=== PATIENT | male | born 1995 | race Caucasian/White ===

== ENCOUNTER 2019-09-14 23:20 | Emergency (ER) | payer OTHER, SELFPAY ==
[2019-09-15 00:31] LABS: Absolute Lymphocytes (CBC) 1.9 K/uL (0.7-4.9); Basophils % 0.6 % (0-1.3); Hematocrit 43.3 % (39.6-49.0); Lymphocytes % 24.6 % (15.3-44.8); MPV 7.8 fL (7.6-11.3); RBC Red Blood Cell Count 4.33 M/uL (4.33-5.43)
[2019-09-15] MEDS ORDERED: FENTANYL CITR 100 MCG/2 ML ONE (00:36)
[2019-09-15] MEDS ORDERED: NA CHLORIDE 0.9% 1,000 ML ONE (00:36)
[2019-09-15 00:37] LABS: Urine Bacteria <20 /HPF (NONE SEEN); Urine Culture Reflex Order NOT NEEDED; Urine Mucus LIGHT /HPF (NONE SEEN); Urine RBC <5 /HPF (NONE SEEN)
[2019-09-15 00:44] LABS: Urine Blood NEGATIVE (NEG); Urine Glucose NEGATIVE (NEG); Urine Protein NEGATIVE (NEG); Urine pH 5.5 (5.0-7.0)
[2019-09-15 00:46] LABS: BUN Blood Urea Nitrogen 12 mg/dL (7-18); Bicarbonate 25 mmol/L (21-32); Glucose Level 87 mg/dL (74-106); Potassium 3.8 mmol/L (3.5-5.1); Sodium Level 135 mmol/L (136-145)
[2019-09-15 01:18] LABS: Blood Morphology Comment NOT SEEN (NOT SEEN); Platelet Estimate ADEQ; Urine White Blood Cell Casts OK
[2019-09-15] MEDS ORDERED: CIPROFLOXACIN HCL 500 MG TAB ONE (01:28)
--- NOTE | 2019-09-15 01:33 | ER ---
Nurse's Notes [facility] Name: Aneesh Coles Age: 24 yrs Sex: Male : 1995 Arrival Date: 09/14/2019 Time: 23:25 Bed 17 Private MD: Diagnosis: Nonspecific mesenteric lymphadenitis;Urinary tract infection, site not specified Presentation: 09/14 23:52 Presenting complaint: Patient states: C/O back pain and thinks it is a kidney infection. Pt states he was lightheaded, feels sick and head was hurting prior to getting in ER. Transition of care: patient was not received from another setting of care. Onset of symptoms was September 14, 2019. Risk Assessment: Do you want to hurt yourself or someone else? Patient reports no desire to harm self or others. Initial Sepsis Screen: Does the patient meet any 2 criteria? No. Patient's initial sepsis screen is negative. Does the patient have a suspected source of infection? No. Patient's initial sepsis screen is negative. Care prior to arrival: None. 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 - Social history:: Smoking status: Patient uses tobacco products, denies chronic smoking, but will smoke occasionally. - Ebola Screening: : Patient negative for fever greater than or equal to 101.5 degrees Fahrenheit, and additional compatible Ebola Virus Disease symptoms Patient denies exposure to infectious person. Screenin:53 Abuse screen: Denies threats or abuse. Denies injuries from another. Nutritional screening: No deficits noted. Tuberculosis screening: No symptoms or risk factors identified. Fall Risk None identified. Assessment: 23:58 General: Appears in no apparent distress. Behavior is calm, cooperative, appropriate for age. Pain: Complains of pain in Lower back Pain does not radiate. Pain currently is 8 out of 10 on a pain scale. Pain began 3 hours ago. Neuro: Level of Consciousness is awake, alert, obeys commands, Oriented to person, place, time, situation, Appropriate for age. Cardiovascular: Capillary refill < 3 seconds. Respiratory: Airway is patent Respiratory effort is even, unlabored, Respiratory pattern is regular, symmetrical. GI: Abdomen is flat, non-distended, Abd is soft and non tender X 4 quads. : No signs and/or symptoms were reported regarding the genitourinary system. EENT: No signs and/or symptoms were reported regarding the EENT system. Derm: Skin is intact, is healthy with good turgor, Skin is pink, warm \T\ dry. normal. Musculoskeletal: Circulation, motion, and sensation intact. 09/15 00:25 Reassessment: Patient to CT via wheelchair. lp1 00:41 Reassessment: Patient appears in no apparent distress at this time. Patient returned lp1 from from CT. 01:50 Reassessment: Patient appears in no apparent distress at this time. No changes from previously documented assessment. Patient and/or family updated on plan of care and expected duration. Pain level reassessed. Patient is alert, oriented x 3, equal unlabored respirations, skin warm/dry/pink. Vital Signs: 09/14 23:59 BP 122 / 85; Pulse 81; Resp 18; Temp 99.2; Pulse Ox 99% ; Weight 92.99 kg; Height 6 ft. 3 in. (190.50 cm); 09/15 01:00 BP 129 / 74; Pulse 74; Resp 18; Pulse Ox 100% ; 02:00 BP 122 / 81; Pulse 76; Resp 18; Pulse Ox 100% on R/A; 09/14 23:59 Body Mass Index 25.62 (92.99 kg, 190.50 cm) ED Course: 09/14 23:25 Patient arrived in ED. jg7 23:32 Rebecca Bar FNP-C is PHCP. snw 23:32 Jamarcus Kennedy MD is Attending Physician. snw 23:35 Lion Muller is Primary Nurse. 23:53 Triage completed. 23:55 Arm band placed on right wrist. 23:55 Patient has correct armband on for positive identification. Bed in low position. Call light in reach. Side rails up X 1. Pulse ox on. NIBP on. 09/15 00:20 Inserted saline lock: 22 gauge in right antecubital area, using aseptic technique. lp1 Blood collected. 00:51 CT Stone Protocol In Process Unspecified. EDMS 02:03 No provider procedures requiring assistance completed. IV discontinued, intact, bleeding controlled, No redness/swelling at site. Administered Medications: 00:40 Drug: fentaNYL (PF) 25 mcg {Note: RASS 0.} Route: IVP; Site: right antecubital; 1 01:40 Follow up: Response: No adverse reaction; Pain is decreased; RASS: Alert and Calm (0) 00:40 Drug: NS 0.9% 1000 ml Route: IV; Rate: 1 bolus; Site: right antecubital; 1 01:40 Follow up: Response: No adverse reaction; IV Status: Completed infusion 01:29 Drug: Cipro 500 mg Route: PO; 01:40 Follow up: Response: No adverse reaction 01:50 Drug: TORadol - Ketorolac 15 mg Route: IVP; Site: right antecubital; 02:05 Follow up: Response: No adverse reaction; Pain is decreased Outcome: 01:32 Discharge ordered by . kameron 02:04 Discharged to home ambulatory, with family. 02:04 Condition: stable 02:04 Discharge instructions given to patient, family, Instructed on discharge instructions, follow up and referral plans. medication usage, POC UTI Demonstrated understanding of instructions, follow-up care, medications, POC Prescriptions given X 2. 02:05 Patient left the ED. Signatures: Dispatcher [employer] EDPA Rebecca Bar, JUNIOR BUSINESS ANALYST-C JUNIOR BUSINESS ANALYST-Csnw Cathleen Issa RN RN 1 Lion Muller Erica Arnett
--- NOTE | 2019-09-15 01:33 | EDPHYS ---
Physician Documentation [facility] Name: Aneesh Coles Age: 24 yrs Sex: Male : 1995 Arrival Date: 09/14/2019 Time: 23:25 Bed 17 Private MD: ED Physician Jamarcus Kennedy HPI: 09/15 01:35 This 24 yrs old Male presents to ER via Ambulatory with complaints of Back snw Pain. 01:35 The patient presents with pain that is acute. The symptoms are located in the right low snw back. Onset: The symptoms/episode began/occurred gradually. The pain does not radiate. Associated signs and symptoms: Pertinent positives: fever, nausea. The problem was sustained from unknown cause. Severity of symptoms: At their worst the symptoms were moderate, severe. The patient has not experienced similar symptoms in the past. It is unknown whether or not the patient has recently seen a physician. 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 - Social history:: Smoking status: Patient uses tobacco products, denies chronic smoking, but will smoke occasionally. - Ebola Screening: : Patient negative for fever greater than or equal to 101.5 degrees Fahrenheit, and additional compatible Ebola Virus Disease symptoms Patient denies exposure to infectious person. ROS: 09/15 01:35 Constitutional: Negative for fever, chills, and weight loss, Eyes: Negative for injury, snw pain, redness, and discharge, ENT: Negative for injury, pain, and discharge, Neck: Negative for injury, pain, and swelling, Cardiovascular: Negative for chest pain, palpitations, and edema, Respiratory: Negative for shortness of breath, cough, wheezing, and pleuritic chest pain, Abdomen/GI: Negative for abdominal pain, nausea, vomiting, diarrhea, and constipation, : Negative for injury, bleeding, discharge, and swelling, MS/Extremity: Negative for injury and deformity, Skin: Negative for injury, rash, and discoloration, Neuro: Negative for headache, weakness, numbness, tingling, and seizure. Back: Positive for pain at rest, pain with movement, of the right low back. Exam: 01:34 Constitutional: This is a well developed, well nourished patient who is awake, alert, snw and in no acute distress. Head/Face: Normocephalic, atraumatic. Eyes: Pupils equal round and reactive to light, extra-ocular motions intact. Lids and lashes normal. Conjunctiva and sclera are non-icteric and not injected. Cornea within normal limits. Periorbital areas with no swelling, redness, or edema. ENT: Nares patent. No nasal discharge, no septal abnormalities noted. Tympanic membranes are normal and external auditory canals are clear. Oropharynx with no redness, swelling, or masses, exudates, or evidence of obstruction, uvula midline. Mucous membranes moist. Neck: Trachea midline, no thyromegaly or masses palpated, and no cervical lymphadenopathy. Supple, full range of motion without nuchal rigidity, or vertebral point tenderness. No Meningismus. Chest/axilla: Normal chest wall appearance and motion. Nontender with no deformity. No lesions are appreciated. Cardiovascular: Regular rate and rhythm with a normal S1 and S2. No gallops, murmurs, or rubs. Normal PMI, no JVD. No pulse deficits. Respiratory: Lungs have equal breath sounds bilaterally, clear to auscultation and percussion. No rales, rhonchi or wheezes noted. No increased work of breathing, no retractions or nasal flaring. Skin: Warm, dry with normal turgor. Normal color with no rashes, no lesions, and no evidence of cellulitis. MS/ Extremity: Pulses equal, no cyanosis. Neurovascular intact. Full, normal range of motion. Neuro: Awake and alert, GCS 15, oriented to person, place, time, and situation. Cranial nerves II-XII grossly intact. Motor strength 5/5 in all extremities. Sensory grossly intact. Cerebellar exam normal. Normal gait. Psych: Awake, alert, with orientation to person, place and time. Behavior, mood, and affect are within normal limits. 01:34 Abdomen/GI: Inspection: abdomen appears normal, Bowel sounds: normal, Palpation: mild abdominal tenderness, moderate abdominal tenderness, in the suprapubic area and posterior aspect of right lateral abdomen. Vital Signs: 09/14 23:59 BP 122 / 85; Pulse 81; Resp 18; Temp 99.2; Pulse Ox 99% ; Weight 92.99 kg; Height 6 ft. wh 3 in. (190.50 cm); 09/15 01:00 BP 129 / 74; Pulse 74; Resp 18; Pulse Ox 100% ; wh 02:00 BP 122 / 81; Pulse 76; Resp 18; Pulse Ox 100% on R/A; wh 09/14 23:59 Body Mass Index 25.62 (92.99 kg, 190.50 cm) MDM: 09/14 23:32 Patient medically screened. snw 09/15 01:33 Data reviewed: vital signs, nurses notes. Data interpreted: Pulse oximetry: on room air snw is 99 %. Interpretation: normal. Counseling: I had a detailed discussion with the patient and/or guardian regarding: the historical points, exam findings, and any diagnostic results supporting the discharge/admit diagnosis, the presence of at least one elevated blood pressure reading (>120/80) during this emergency department visit, lab results, radiology results, the need for outpatient follow up, to return to the emergency department if symptoms worsen or persist or if there are any questions or concerns that arise at home. Response to treatment: the patient's symptoms have mildly improved after treatment. Special discussion: Based on the patient's Hx, exam, and Dx evaluation, there is no indication for emergent surgery or inpatient Tx. It is understood by the patient/guardian that if the Sx's persist or worsen they need to return immediately for re-evaluation. Based on the history and exam findings, there is no indication for further emergent testing or inpatient evaluation. I discussed with the patient/guardian the need to see the primary care provider for further evaluation of the symptoms. 09/15 00:06 Order name: Urine Culture snw 09/15 00:06 Order name: Urine Microscopic Only; Complete Time: 00:50 snw 09/15 00:07 Order name: CBC with Diff; Complete Time: :23 snw 09/15 00:07 Order name: Chem 7; Complete Time: 00:50 snw 09/15 00:37 Order name: Urine Dipstick--Ancillary (enter results); Complete Time: 00:50 mt 09/15 01:18 Order name: CBC Smear Scan; Complete Time: 01:23 EDMS 09/15 00:06 Order name: Urine Dipstick-Ancillary (obtain specimen); Complete Time: 00:30 snw 09/15 00:06 Order name: CT Stone Protocol snw Administered Medications: 00:40 Drug: fentaNYL (PF) 25 mcg {Note: RASS 0.} Route: IVP; Site: right antecubital; lp1 01:40 Follow up: Response: No adverse reaction; Pain is decreased; RASS: Alert and Calm (0) 00:40 Drug: NS 0.9% 1000 ml Route: IV; Rate: 1 bolus; Site: right antecubital; lp1 01:40 Follow up: Response: No adverse reaction; IV Status: Completed infusion 01:29 Drug: Cipro 500 mg Route: PO; 01:40 Follow up: Response: No adverse reaction 01:50 Drug: TORadol - Ketorolac 15 mg Route: IVP; Site: right antecubital; 02:05 Follow up: Response: No adverse reaction; Pain is decreased Disposition: 10:22 Co-signature as Attending Physician, Jamarcus Kennedy MD I agree with the assessment and kdr plan of care. Disposition: 09/15/19 01:32 Discharged to Home. Impression: Nonspecific mesenteric lymphadenitis, Urinary tract infection, site not specified. - Condition is Stable. - Discharge Instructions: Back Pain, Adult, Mesenteric Adenitis, Pediatric, Urinary Tract Infection, Adult, Rehydration, Adult. - Prescriptions for Cipro 500 mg Oral Tablet - take 1 tablet by ORAL route every 12 hours for 7 days; 14 tablet. Diclofenac Sodium 75 mg Oral Tablet Sustained Release - take 1 tablet by ORAL route 2 times per day; 30 tablet. - Work release form, Medication Reconciliation Form, Thank You Letter, Antibiotic Education, Prescription Opioid Use form. - Follow up: Private Physician; When: 2 - 3 days; Reason: Recheck today's complaints, Continuance of care, Re-evaluation by your physician. Follow up: Emergency Department; When: As needed; Reason: Worsening of condition. Signatures: Dispatcher [employer] Jamarcus Meehan MD MD kdr Therrien, Shelly, DINING SERVICES MANAGER-C DINING SERVICES MANAGER-Csnw Cathleen Issa RN RN 1 Lion Muller Corrections: (The following items were deleted from the chart) 02:05 01:32 09/15/2019 01:32 Discharged to Home. Impression: Nonspecific mesenteric wh lymphadenitis; Urinary tract infection, site not specified. Condition is Stable. Forms are Medication Reconciliation Form, Thank You Letter, Antibiotic Education, Prescription Opioid Use. Follow up: Private Physician; When: 2 - 3 days; Reason: Recheck today's complaints, Continuance of care, Re-evaluation by your physician. Follow up: Emergency Department; When: As needed; Reason: Worsening of condition. snw
[2019-09-15] MEDS ORDERED: KETOROLAC 30 MG/ML INJ ONE (01:47)
[2019-09-15 02:35] VITALS: TEMP 99.2
[2019-09-15 02:36] VITALS: O2SAT 100
[2019-09-15 02:38] VITALS: BP 122/81
--- NOTE | 2019-09-16 11:36 | RAD REPORT ---
EXAM DESCRIPTION: CT - Stone Protocol - 09/15/2019 2:39 am CLINICAL HISTORY: FLANK PAIN COMPARISON: None Available. TECHNIQUE: CT of the abdomen and pelvis without IV contrast. Evaluation of the solid organs and vasc ulature is suboptimal due to lack of IV contrast. FINDINGS: Lung Bases: The visualized lung bases are clear. Bones: No destructive bone lesions identified. Dextroconvex curvature of the thoracolumbar spine. Abdomen: Liver: The liver has normal size and density. Gallbladder: No calcified gallstones. Spleen, Pancreas, and Adrenal Glands: The spleen, pancreas, and adrenal glands are unremarkable. Kidneys: The kidneys have normal size without evidence of hydronephrosis. No obstructing ureteral lena culi. Vasculature: The aorta and IVC have normal caliber and position. Stomach: The stomach and duodenum have normal course. Other: No free intraperitoneal air. Mild mesenteric lymphadenopathy. Pelvis: Bladder: Urinary bladder is unremarkable. Bowel: No dilated loops of large or small bowel. Appendix: Normal appendix. Pelvis: Prostate is not enlarged. IMPRESSION: 1. Mild mesenteric lymphadenopathy is likely reactive and secondary to nonspecific enter itis/mesenteritis. 2. No obstructing ureteral calculus. This exam was performed according to our departmental dose-optimization program, which includes autom ated exposure control, adjustment of the mA and/or kV according to patient size and/or use of iterati ve reconstruction technique. Electronically signed by: Milo Anguiano 09/15/2019 12:59 AM MANAGEMENT INTERN Due to temporary technical issues with the PACS/Fluency reporting system, reports are being signed by the in house radiologist as a courtesy to ensure prompt reporting. The interpreting radiologist is f ully responsible for the content of the report.
== END 2019-09-15 02:05 | disposition home or self-care (01) ==
LOC: ER 23:20
DX: N39.0 Urinary tract infection, site not specified (principal); I88.0 Nonspecific mesenteric lymphadenitis; Z72.0 Tobacco use
CPT/HCPCS: 36415; 74176; 76377; 80048; 81003; 81015; 85025; 87086; 87088; 96361; 96374; 96375; 99284; J3010; J7030

== ENCOUNTER 2021-02-23 19:51 | Emergency (ER) | payer SELFPAY ==
--- NOTE | 2021-02-23 20:12 | ER ---
Nurse's Notes [facility] Name: Aneesh Coles Age: 25 yrs Sex: Male : 1995 Arrival Date: 02/23/2021 Time: 19:55 Bed 12 Private MD: Diagnosis: Other otitis externa, left ear Presentation: 02/23 20:04 Chief complaint: Patient states: L ear pain and pain on L side of forehead, face and ca1 jaw x 3 days. Coronavirus screen: Client denies travel out of the [place] in the last 14 days. At this time, the client does not indicate any symptoms associated with coronavirus-19. Ebola Screen: Patient negative for fever greater than or equal to 101.5 degrees Fahrenheit, and additional compatible Ebola Virus Disease symptoms Patient denies exposure to infectious person. Patient denies travel to an Ebola-affected area in the 21 days before illness onset. No symptoms or risks identified at this time. Initial Sepsis Screen: Does the patient meet any 2 criteria? No. Patient's initial sepsis screen is negative. Does the patient have a suspected source of infection? No. Patient's initial sepsis screen is negative. Risk Assessment: Do you want to hurt yourself or someone else? Patient reports no desire to harm self or others. Onset of symptoms was February 23, 2021. 20:04 Method Of Arrival: Ambulatory ca1 20:04 Acuity: MEMO 3 ca1 Historical: - Allergies: 20:05 No Known Allergies; ca1 - Home Meds: 20:05 None [Active]; ca1 - PMHx: 20:05 ADD/ADHD; ca1 - PSHx: 20:05 Splenectomy; ca1 - Immunization history:: Client reports having NOT received the Covid vaccine. Flu vaccine is not up to date. - Social history:: Smoking status: Patient denies any tobacco usage or history of. Screenin:07 Abuse screen: Denies threats or abuse. Denies injuries from another. Nutritional ca1 screening: No deficits noted. Tuberculosis screening: No symptoms or risk factors identified. Fall Risk None identified. Assessment: 20:07 General: Appears in no apparent distress. comfortable, Behavior is calm, cooperative, ca1 appropriate for age. Pain: Complains of pain in left ear Pain currently is 7 out of 10 on a pain scale. Pain began 2-3 days ago. EENT: Tympanic membrane clear on left ear and right ear Ear canal clear on left ear and right ear. Derm: Skin is intact, is healthy with good turgor, Skin is pink, warm \T\ dry. Musculoskeletal: Circulation, motion, and sensation intact. Capillary refill < 3 seconds. Vital Signs: 20:04 BP 120 / 72; Pulse 66; Resp 16 S; Temp 97.1(TE); Pulse Ox 99% on R/A; Weight 99.79 kg ca1 (R); Height 6 ft. 3 in. (190.50 cm) (R); Pain 8/10; 20:04 Body Mass Index 27.50 (99.79 kg, 190.50 cm) ca1 ED Course: 19:55 Patient arrived in ED. bp1 20:02 [facility] Keen [facility]-C [facility]. kb 20:02 Grupo Gibson MD is Attending Physician. kb 20:05 Triage completed. ca1 20:05 Arm band placed on right wrist. ca1 20:07 Lenora Bullard RN is Primary Nurse. ca1 20:07 Patient has correct armband on for positive identification. ca1 20:09 No provider procedures requiring assistance completed. Patient did not have IV access ca1 during this emergency room visit. Administered Medications: No medications were administered Outcome: 20:10 Discharge ordered by . kb 20:14 Discharged to home ambulatory. ca1 20:14 Condition: stable 20:14 Discharge instructions given to patient, Instructed on discharge instructions, follow up and referral plans. medication usage, Demonstrated understanding of instructions, follow-up care, medications, Prescriptions given X 1. 20:14 Patient left the ED. ca1 Signatures: Hillary Keen FNP-C FNP-Lenora Bennett, MOY RN ca1 Venita Mccartney bp1
--- NOTE | 2021-02-23 20:12 | EDPHYS ---
Physician Documentation [facility] Name: Aneesh Coles Age: 25 yrs Sex: Male : 1995 Arrival Date: 02/23/2021 Time: 19:55 Bed 12 Private MD: ED Physician Grupo Gibson HPI: 02/23 20:31 This 25 yrs old Male presents to ER via Ambulatory with complaints of Ear kb Pain, Headache. 20:31 The patient presents with pain, tenderness. The complaints affect the left ear. The kb patient has not experienced similar symptoms in the past. The patient has not recently seen a physician. 20:31 Onset: The symptoms/episode began/occurred 3 day(s) ago. Modifying factors: The kb symptoms are alleviated by nothing, the symptoms are aggravated by nothing. Associated signs and symptoms: The patient has no apparent associated signs or symptoms. Severity of symptoms: At their worst the symptoms were moderate in the emergency department the symptoms are unchanged. Pt reports ear pain that started 3 days ago after swimming with child. States it has been causing a headache and the pain now radiates to cheek and jaw. 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 Flu vaccine is not up to date. - Social history:: Smoking status: Patient denies any tobacco usage or history of. ROS: 20:29 Constitutional: Negative for fever, chills, and weight loss, Respiratory: Negative for kb shortness of breath, cough, wheezing, and pleuritic chest pain, MS/Extremity: Negative for injury and deformity, Skin: Negative for injury, rash, and discoloration. 20:29 ENT: Positive for ear pain. 20:29 Neuro: Positive for headache. Exam: 20:28 Constitutional: This is a well developed, well nourished patient who is awake, alert, kb and in no acute distress. Head/Face: Normocephalic, atraumatic. Respiratory: Respirations even and unlabored. No increased work of breathing, no retractions or nasal flaring. Skin: Warm, dry with normal turgor. Normal color. MS/ Extremity: Pulses equal, no cyanosis. Neurovascular intact. Full, normal range of motion. Neuro: Awake and alert, GCS 15, oriented to person, place, time, and situation. Moves all extremities. Normal gait. 20:28 ENT: Ear canal(s): erythema, that is moderate, of the left canal, inflammation left ear canal, TM's: are normal, Mouth: is normal, Posterior pharynx: is normal. Vital Signs: 20:04 BP 120 / 72; Pulse 66; Resp 16 S; Temp 97.1(TE); Pulse Ox 99% on R/A; Weight 99.79 kg ca1 (R); Height 6 ft. 3 in. (190.50 cm) (R); Pain 8/10; 20:04 Body Mass Index 27.50 (99.79 kg, 190.50 cm) ca1 MDM: 20:09 Patient medically screened. kb 20:28 Data reviewed: vital signs, nurses notes. Data interpreted: Pulse oximetry: on room air kb is 99 %. Interpretation: normal. Counseling: I had a detailed discussion with the patient and/or guardian regarding: the historical points, exam findings, and any diagnostic results supporting the discharge/admit diagnosis, the need for outpatient follow up, a family practitioner, to return to the emergency department if symptoms worsen or persist or if there are any questions or concerns that arise at home. Administered Medications: No medications were administered Disposition: 21:10 Co-signature as Attending Physician, Grupo Gibson MD. rn Disposition: 02/23/21 20:10 Discharged to Home. Impression: Other otitis externa, left ear. - Condition is Stable. - Discharge Instructions: Otitis Externa, [id number], Ear Drops, Adult, [id number]. - Prescriptions for Cortisporin 3.5- 10,000-1 mg/mL-unit/mL-% Otic solution - instill 4 drop by OTIC route 3 times per day for 7 days; 1 bottle. - Medication Reconciliation Form, Thank You Letter, Antibiotic Education, Prescription Opioid Use, Work release form form. - Follow up: Emergency Department; When: As needed; Reason: Worsening of condition. Follow up: Private Physician; When: 2 - 3 days; Reason: Recheck today's complaints, Continuance of care, Re-evaluation by your physician. Signatures: Hillary Keen FNP-C GRAIN UNLOADER MACHINE-Grupo Olvieira MD MD rn Acob, MOY Cooley RN ca1 Corrections: (The following items were deleted from the chart) 20:14 20:10 02/23/2021 20:10 Discharged to Home. Impression: Other otitis externa, left ear. ca1 Condition is Stable. Forms are Work release form, Medication Reconciliation Form, Thank You Letter, Antibiotic Education, Prescription Opioid Use. Follow up: Emergency Department; When: As needed; Reason: Worsening of condition. Follow up: Private Physician; When: 2 - 3 days; Reason: Recheck today's complaints, Continuance of care, Re-evaluation by your physician. kb 20:29 20:28 ENT: Ear canal(s): erythema, that is moderate, of the left canal, inflammation kb left ear canal, TM's: are normal, kb 20:30 20:29 Constitutional: Negative for fever, chills, and weight loss, Respiratory: kb Negative for shortness of breath, cough, wheezing, and pleuritic chest pain, MS/Extremity: Negative for injury and deformity, Skin: Negative for injury, rash, and discoloration, Psych: Negative for depression, anxiety, suicide ideation, homicidal ideation, and hallucinations, kb
[2021-02-23 20:18] VITALS: BP 120/72; TEMP 97.1; O2SAT 99
== END 2021-02-23 20:14 | disposition home or self-care (01) ==
LOC: ER 19:51
DX: H60.8X2 Other otitis externa, left ear (principal)
CPT/HCPCS: 99282

== ENCOUNTER 2022-06-30 13:27 | Emergency (ER) | payer SELFPAY ==
--- NOTE | 2022-06-30 14:52 | ER ---
Nurse's Notes [facility] Name: Aneesh Coles Age: 26 yrs Sex: Male : 1995 Arrival Date: 06/30/2022 Time: 13:28 Bed Treatment Private MD: Diagnosis: Contact dermatitis Presentation: 06/30 14:34 Chief complaint: Patient states: got into some poison [place] or poison [place] 2 days ago, now iw has rash to arms, face. Coronavirus screen: At this time, the client does not indicate any symptoms associated with coronavirus-19. Ebola Screen: Patient negative for fever greater than or equal to 101.5 degrees Fahrenheit, and additional compatible Ebola Virus Disease symptoms Patient denies exposure to infectious person. Patient denies travel to an Ebola-affected area in the 21 days before illness onset. No symptoms or risks identified at this time. 14:34 Method Of Arrival: Ambulatory iw 14:34 Acuity: MEMO 4 iw 14:57 Initial Sepsis Screen: Does the patient meet any 2 criteria? No. Patient's initial ll1 sepsis screen is negative. Does the patient have a suspected source of infection? Yes: Skin breakdown/wound. Risk Assessment: Do you want to hurt yourself or someone else? Patient reports no desire to harm self or others. Onset of symptoms was June 29, 2022. Historical: - Allergies: 14:35 No Known Allergies; iw - Home Meds: 14:35 None [Active]; iw - PMHx: 14:35 ADD/ADHD; iw - PSHx: 14:35 Splenectomy; iw - Immunization history:: Adult Immunizations up to date. - Social history:: Smoking status: Reported history of juuling and/or vaping. Screenin:36 Abuse screen: Denies threats or abuse. Denies injuries from another. Nutritional iw screening: No deficits noted. Tuberculosis screening: No symptoms or risk factors identified. 15:10 Fall Risk Total Jennings Fall Scale indicates No Risk (0-24 pts). ll1 Assessment: 14:35 General: Appears in no apparent distress. Behavior is calm, cooperative. Pain: Denies iw pain. Neuro: Level of Consciousness is awake, alert, obeys commands, Oriented to person, place, time, situation. Derm: Rash noted that is on face, right arm and left arm. Musculoskeletal: Range of motion: intact in all extremities. 14:58 Reassessment: No changes from previously documented assessment. Patient and/or family ll1 updated on plan of care and expected duration. Pain level reassessed. 15:08 Reassessment: No changes from previously documented assessment. Patient and/or family ll1 updated on plan of care and expected duration. Pain level reassessed. Vital Signs: 14:57 BP 122 / 91; Pulse 62; Resp 16; Temp 98.1; Pulse Ox 99% ; Weight 95.25 kg; Height 6 ft. ll1 3 in. (190.50 cm); Pain 0/10; 14:57 Body Mass Index 26.25 (95.25 kg, 190.50 cm) ll1 ED Course: 13:28 Patient arrived in ED. am2 14:26 Odalis Bolden, MOY is Primary Nurse. iw 14:27 Christiano Vera PA is PHCP. [facility] 14:27 Jamarcus Kennedy MD is Attending Physician. [facility] 14:32 Arm band placed on Patient placed in an exam room, on a stretcher. iw 14:34 Triage completed. iw 14:58 Patient has correct armband on for positive identification. Bed in low position. Call ll1 light in reach. Side rails up X 1. Cardiac monitoring not applicable on this patient. 15:09 No provider procedures requiring assistance completed. Patient did not have IV access ll1 during this emergency room visit. Administered Medications: 14:56 Drug: Decadron (dexamethasone) 10 mg Route: IM; Site: right vastus lateralis; ll1 15:09 Follow up: Response: No adverse reaction ll1 Medication: 14:58 VIS not applicable for this client. ll1 Outcome: 14:52 Discharge ordered by . [facility] 15:10 Discharged to home ambulatory. ll1 15:10 Condition: stable 15:10 Discharge instructions given to patient, Instructed on discharge instructions, follow up and referral plans. medication usage, Demonstrated understanding of instructions, follow-up care, medications, Prescriptions given X 2. 15:10 Patient left the ED. ll1 Signatures: Christiano Vera PA PA jmm Williams, Irene, RN RN Lindsey Kendrick am2 Sharita Stuart RN RN ll1
--- NOTE | 2022-06-30 14:52 | EDPHYS ---
Physician Documentation [facility] Name: Aneesh Coles Age: 26 yrs Sex: Male : 1995 Arrival Date: 06/30/2022 Time: 13:28 Bed Treatment Private MD: ED Physician Jamarcus Kennedy HPI: 06/30 14:49 This 26 yrs old Male presents to ER via Ambulatory with complaints of Rash - jmm face/poison [place]. 14:49 The patient's rash thought to be caused by Dermatitis. The rash is located on the face, jmm right arm and left arm. Onset: The symptoms/episode began/occurred gradually, 2 day(s) ago. Associated signs and symptoms: Pertinent positives: burning sensation, itching, Pertinent negatives: fever, swelling of lips, swelling of throat, swelling of tongue, vomiting, wheezing. It is unknown whether or not the patient has had similar symptoms in the past. Historical: - Allergies: 14:35 No Known Allergies; iw - Home Meds: 14:35 None [Active]; iw - PMHx: 14:35 ADD/ADHD; iw - PSHx: 14:35 Splenectomy; iw - Immunization history:: Adult Immunizations up to date. - Social history:: Smoking status: Reported history of juuling and/or vaping. ROS: 14:49 Constitutional: Negative for fever, chills, and weight loss, Cardiovascular: Negative jmm for chest pain, palpitations, and edema, Respiratory: Negative for shortness of breath, cough, wheezing, and pleuritic chest pain. 14:49 MS/extremity: Positive for rash. 14:49 Skin: Positive for rash. 14:49 All other systems are negative. Exam: 14:49 Constitutional: This is a well developed, well nourished patient who is awake, alert, jmm and in no acute distress. Head/Face: atraumatic. Eyes: EOMI, no conjunctival erythema appreciated ENT: Moist Mucus Membranes Neck: Trachea midline, Supple Chest/axilla: Normal chest wall appearance and motion. Cardiovascular: Regular rate and rhythm. No edema appreciated Respiratory: Normal respirations, no respiratory distress appreciated Abdomen/GI: Non distended Back: Normal ROM 14:49 Neuro: Awake and alert Psych: Behavior is normal, Mood is normal, Patient is cooperative and pleasant 14:49 Skin: Erythema noted to the right and left arm. Erythema noted to the face. Appears consistent with dermatitis. Vital Signs: 14:57 BP 122 / 91; Pulse 62; Resp 16; Temp 98.1; Pulse Ox 99% ; Weight 95.25 kg; Height 6 ft. ll1 3 in. (190.50 cm); Pain 0/10; 14:57 Body Mass Index 26.25 (95.25 kg, 190.50 cm) ll1 MDM: 14:[address] [facility] 14:51 Data reviewed: vital signs, nurses notes. Counseling: I had a detailed discussion with anabela the patient and/or guardian regarding: the historical points, exam findings, and any diagnostic results supporting the discharge/admit diagnosis, the need for outpatient follow up, to return to the emergency department if symptoms worsen or persist or if there are any questions or concerns that arise at home. Administered Medications: 14:56 Drug: Decadron (dexamethasone) 10 mg Route: IM; Site: right vastus lateralis; ll1 15:09 Follow up: Response: No adverse reaction ll1 Disposition: 17:59 Co-signature as Attending Physician, Jamarcus Kennedy MD I agree with the assessment and kdr plan of care. Disposition Summary: 06/30/22 14:52 Discharge Ordered Location: Home [facility] Condition: Stable [facility] Diagnosis - Contact dermatitis [facility] Followup: [facility] - With: Private Physician - When: 2 - 3 days - Reason: Recheck today's complaints, Continuance of care, Re-evaluation by your physician Discharge Instructions: - Discharge Summary Sheet [facility] - Contact Dermatitis [facility] Forms: - Medication Reconciliation Form [facility] - Thank You Letter [facility] - Antibiotic Education [facility] - Prescription Opioid Use [facility] Prescriptions: - Prednisone 20 mg Oral Tablet - take 3 tablets by ORAL route once daily for 12 days Please take [address] [facility] daily for 3 days, then take 2 tabs by mouth daily for 3 days, then take 1 tab by mouth daily for 3 days, then take one half tab by mouth daily for 3 days; 20 tablet; Refills: 0, Product Selection Permitted - Hydroxyzine HCl 25 mg Oral Tablet - take 1 tablet by ORAL route every 6 hours As needed; 30 tablet; Refills: 0, [facility] Product Selection Permitted Signatures: Rittger, Jamarcus, Christiano Theodore MD, PA PA jmm Williams, Irene, RN RN iw Sharita Stuart RN RN ll1
[2022-06-30] MEDS ORDERED: dexAMETHasone 10 MG/ML VIAL ONE (14:56)
[2022-07-01 21:06] VITALS: BP 122/91; TEMP 98.1; O2SAT 99
== END 2022-06-30 15:10 | disposition home or self-care (01) ==
LOC: ER 13:27
DX: L25.9 Unspecified contact dermatitis, unspecified cause (principal)
CPT/HCPCS: 96372; 99283; J1100

== ENCOUNTER 2024-02-23 11:36 | Emergency (ER) | payer SELFPAY ==
[2024-02-23] MEDS ORDERED: LIDOCAINE 1% MPF 5 ML VIAL ONE (12:30)
--- NOTE | 2024-02-23 13:13 | ER ---
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 rv Coronavirus screen: At this time, the client does not indicate any symptoms associated with coronavirus-19. Ebola Screen: No symptoms or risks identified at this time. Complicating Factors: There are no complicating factors for this patient. Initial Sepsis Screen: Does the patient meet any 2 criteria? No. Patient's initial sepsis screen is negative. Does the patient have a suspected source of infection? No. Patient's initial sepsis screen is negative. Risk Assessment: Do you want to hurt yourself or someone else? Patient reports no desire to harm self or others. Onset of symptoms was February 23, 2024. 11:48 Method Of Arrival: Ambulatory rv 11:48 Acuity: MEMO 4 rv Triage Assessment: 11:50 General: Appears in no apparent distress. Behavior is cooperative, anxious. Pain: Pain rv currently is 7 out of 10 on a pain scale. Neuro: Level of Consciousness is awake, alert, obeys commands, Oriented to person, place, time, situation. Cardiovascular: Patient's skin is warm and dry. Respiratory: Respiratory effort is even, unlabored, Respiratory pattern is regular, symmetrical. Injury Description: Laceration sustained to palmar aspect of distal phalanx of left index finger is 0.5 to 2.5 cm long, was sustained 30-60 minutes ago. Historical: - Allergies: 11:50 No Known Allergies; rv - Home Meds: 11:50 None [Active]; rv - PMHx: 11:50 ADD/ADHD; rv - PSHx: 11:50 Splenectomy; rv - Immunization history:: Last tetanus immunization: < 5 years ago. - Infectious Disease History:: Denies. - Social history:: Smoking status: Reported history of juuling and/or vaping. Vital Signs: 11:48 BP 135 / 91; Pulse 78; Resp 16; Temp 98.1; Pulse Ox 100% on R/A; Weight 104.33 kg; rv Height 6 ft. 3 in. ; Pain 04/23; 11:48 Body Mass Index 28.75 (104.33 kg, 190.5 cm) rv 11:48 Pain Scale: Adult rv ED Course: 11:36 Patient arrived in ED. mg5 11:39 Griselda Rockwell FNP is [facility] 7 11:39 Julio Metz MD is Attending Physician. [facility] 11:50 Triage completed. rv 11:50 Arm band placed on. rv 13:06 Tala Rucker, RN is Primary Nurse. hb Administered Medications: 12:40 Drug: Lidocaine Infiltration (1 %) 5 ml 5 ml Infiltration once; to bedside Volume: 5 hb ml; Route: Infiltration; 13:30 Follow up: Response: No adverse reaction Outcome: 13:12 Discharge ordered by . [facility] 13:30 Patient left the ED. hb Signatures: Tala Rucker RN RN Nathaniel Osman RN RN Griselda Rockwell FNP [place] [id number] [address] 5
--- NOTE | 2024-02-23 13:13 | EDPHYS ---
Physician Documentation [facility] Name: Aneesh Coles Age: 28 yrs Sex: Male : 1995 Arrival Date: 02/23/2024 Time: 11:36 Bed 11 Private MD: ED Physician Julio Metz HPI: 02/22 11:39 This 28 yrs old Male presents to ER via Unassigned with complaints of Laceration To jh7 Hand - Finger. 11:39 28-year-old male with no past medical history presents to the ER for left index finger 7 laceration. The patient states that he accidentally cut it with a clean razor blade. He reports that his tetanus is up-to-date. Bleeding controlled with pressure.. Historical: - Allergies: 11:50 No Known Allergies; rv - Home Meds: 11:50 None [Active]; rv - PMHx: 11:50 ADD/ADHD; rv - PSHx: 11:50 Splenectomy; rv - Immunization history:: Last tetanus immunization: < 5 years ago. - Infectious Disease History:: Denies. - Social history:: Smoking status: Reported history of juuling and/or vaping. ROS: 11:39 Constitutional: Per HPI jh7 Exam: 11:39 Constitutional: This is a well developed, well nourished patient who is awake, alert, jh7 and in no acute distress. Head/Face: Normocephalic, atraumatic. Neck: Trachea midline, no thyromegaly or masses palpated, and no cervical lymphadenopathy. Supple, full range of motion without nuchal rigidity, or vertebral point tenderness. No Meningismus. Cardiovascular: Regular rate and rhythm with a normal S1 and S2. No gallops, murmurs, or rubs. Normal PMI, no JVD. No pulse deficits. Respiratory: Lungs have equal breath sounds bilaterally, clear to auscultation and percussion. No rales, rhonchi or wheezes noted. No increased work of breathing, no retractions or nasal flaring. 11:39 MS/ Extremity: Pulses equal, no cyanosis. Neurovascular intact. Full, normal range of motion. Neuro: Awake and alert, GCS 15, oriented to person, place, time, and situation. Motor strength 5/5 in all extremities. Sensory grossly intact. Normal gait. 11:39 Skin: injury, laceration(s), the wound is approximately 1 cm(s), of the left distal 2nd phalanx, Vital Signs: 11:48 BP 135 / 91; Pulse 78; Resp 16; Temp 98.1; Pulse Ox 100% on R/A; Weight 104.33 kg; rv Height 6 ft. 3 in. ; Pain 7/10; 11:48 Body Mass Index 28.75 (104.33 kg, 190.5 cm) rv 11:48 Pain Scale: Adult rv Laceration: 13:32 Wound Repair of 1cm ( 0.4in ) subcutaneous laceration to palmar aspect of distal jh7 phalanx of left index finger. Distal neuro/vascular/tendon intact. Anesthesia: Digital block administered with 3 mls of 1% lidocaine. Wound prep: Moderate cleansing by nurse by ca. Skin closed with 22 5-0 Prolene using simple sutures and sterile technique. Dressed with non-adherent dressing. Patient tolerated well. MDM: 11:39 Patient medically screened. [facility] 13:32 Differential diagnosis: superficial laceration. Data reviewed: vital signs, nurses [facility] notes. I considered the following discharge prescriptions or medication management in the emergency department Medications were administered in the Emergency Department. See MAR. Counseling: I had a detailed discussion with the patient and/or guardian regarding the historical points, exam findings, and any diagnostic results supporting the discharge/admit diagnosis, the need for outpatient follow up, for suture removal, to return to the emergency department if symptoms worsen or persist or if there are any questions or concerns that arise at home. 02/22 11:46 Order name: Dressing - Wound; Complete Time: 13:30 [facility] 02/22 11:46 Order name: Gloves, Sterile; Complete Time: 13:30 [facility] 02/22 11:46 Order name: Prolene, Sutures; Complete Time: 13:30 [facility] 02/22 11:46 Order name: Setup Suture Tray; Complete Time: 13:30 [facility] 02/22 11:46 Order name: Wound Care; Complete Time: 13:30 [facility] 02/22 13:11 Order name: Misc. Order: bulky coban dressing; Complete Time: 13:30 [facility] Administered Medications: 12:40 Drug: Lidocaine Infiltration (1 %) 5 ml 5 ml Infiltration once; to bedside Volume: 5 hb ml; Route: Infiltration; 13:30 Follow up: Response: No adverse reaction hb Disposition Summary: 02/23/24 13:12 Discharge Ordered Notes: Location: Home [facility] Problem: new [facility] Symptoms: have improved [facility] Condition: Stable [facility] Diagnosis - Laceration without foreign body of left index finger without damage to nail [facility] Followup: [facility] - With: Private Physician - When: 7 - 10 days - Reason: Staple/Suture removal Discharge Instructions: - Discharge Summary Sheet [facility] - Laceration Care, Adult [facility] Forms: - Medication Reconciliation Form [facility] - Antibiotic Education [facility] - Patient Portal Instructions [facility] - Leadership Thank You Letter [facility] Prescriptions: - Cephalexin 500 mg Oral capsule - take 1 capsule ORAL route every 12 hours for 7 days; 14 capsule; Refills: 0, [facility] Product Selection Permitted Signatures: Tala Rucker, RN RN Nathaniel Osman RN RN Griselda Rockwell, COMMUNICATION LECTURER COMMUNICATION LECTURER [facility] Corrections: (The following items were deleted from the chart) 13:37 11:39 Skin: injury, laceration(s), the wound is approximately 1.5 cm(s), of the left [facility] distal 2nd phalanx, [facility]
[2024-02-23 13:49] VITALS: BP 135/91; TEMP 98.1; O2SAT 100
== END 2024-02-23 13:30 | disposition home or self-care (01) ==
LOC: ER 11:36
PROC: 0HQGXZZ Repair Left Hand Skin, External Approach (ICD-10-PCS; principal; 2024-02-23)
DX: S61.211A Laceration without foreign body of left index finger without damage to nail, initial encounter (principal)
CPT/HCPCS: 99282; J2001